=== PATIENT | male | born 1965 | race Caucasian/White ===

== ENCOUNTER 2021-11-14 19:33 | Inpatient (IN) | payer OTHER ==
[~2021-11-14] VITALS: Ht 180.3 cm; Wt 135.6 kg
[2021-11-14 23:21] LABS: BUN/CREATININE RATIO 40 (0-10)
[2021-11-14 23:22] LABS: HEMOGLOBIN 15.3 gm/dl (14.0-17.5); RED BLOOD COUNT 4.68 M/UL (4.20-5.50); WHITE BLOOD COUNT 9.7 K/UL (4.5-11.0)
[2021-11-14] MEDS ORDERED: NEURONTIN600 MG PO (23:31)
[2021-11-14] MEDS ORDERED: TENORMIN50 MG PO (23:32)
[2021-11-14] MEDS ORDERED: NORVASC5 MG PO (23:32)
[2021-11-14] MEDS ORDERED: ZYLOPRIM100 MG PO (23:32)
[2021-11-14] MEDS ORDERED: COLCHICINE0.6 MG PO (23:33)
[2021-11-14] MEDS ORDERED: TRICOR 145 MG145 MG PO (23:34)
[2021-11-14] MEDS ORDERED: MOBIC15 MG PO (23:36)
[2021-11-14] MEDS ORDERED: LISINOPRIL-HCT1 EAC2 PO (23:36)
[2021-11-14] MEDS ORDERED: ROBAXIN 750 MG750 MG PO (23:37)
[2021-11-14] MEDS ORDERED: PROTONIX40 MG PO (23:37)
[2021-11-14] MEDS ORDERED: KLOR-CON M2020 MEQ PO (23:37)
[2021-11-14] MEDS ORDERED: FLOMAX 0.4 MG0.4 MG PO (23:39)
[2021-11-14] MEDS ORDERED: NAPROXEN500 MG PO (23:41)
[2021-11-15 09:29] LABS: ADENOVIRUS F 40/41 Not Detected (Negative); ASTROVIRUS Not Detected (Negative); CAMPYLOBACTER Not Detected (Negative); CRYPTOSPORIDIUM Not Detected (Negative); E.COLI 0157 Not Detected (Negative); ENTAMOEBA HISTOLYTICA Not Detected (Negative); ENTEROAGGREGATIVE E.COLI (EAEC Not Detected (Negative); ENTEROTOXIGENIC E.COLI (ETEC) Not Detected (Negative); GIARDIA LAMBLIA Not Detected (Negative); NOROVIRUS GI/GII Not Detected (Negative); PLESIOMONAS SHIGELLOIDES Not Detected (Negative); SALMONELLA Not Detected (Negative); SAPOVIRUS Not Detected (Negative); SHIG/ENTEROINVAS.ECOLI (EIEC) Not Detected (Negative); SHIGA-LIK TOX.PRO.E.COLI (STEC Not Detected (Negative); VIBRIO Not Detected (Negative); VIBRIO CHOLERAE Not Detected (Negative); YERSINIA ENTEROCOLITICA Not Detected (Negative)
[2021-11-15] MEDS ORDERED: PROAIR HFA8.5 GM INH (09:29)
[2021-11-15] MEDS ORDERED: HYDROCODON-ACE1 EAC2 PO (09:30)
[2021-11-15] MEDS ORDERED: LACTULOSE10 GM/15 M PO (09:30)
[2021-11-15] MEDS ORDERED: LANTUS SOL100 UNIT/1 SC (09:32)
[2021-11-15 13:18] LABS: ENTEROPATHOGENIC E.COLI (EPEC) DETECTED (Negative); ROTOVIRUS A DETECTED (Negative)
[2021-11-15] MEDS ORDERED: FLONASE 0.05% N16 GM (23:35)
[2021-11-15] MEDS ORDERED: CRESTOR5 MG PO (23:39)
[2021-11-15] MEDS ORDERED: VITAMIN D21250 MCG PO (23:40)
[2021-11-16 02:10] LABS: HEMOGLOBIN 13.9 gm/dl (14.0-17.5); RED BLOOD COUNT 4.36 M/UL (4.20-5.50); WHITE BLOOD COUNT 7.9 K/UL (4.5-11.0)
[2021-11-16 02:52] LABS: BUN/CREATININE RATIO 13 (0-10)
== END 2021-11-16 10:47 | disposition home or self-care (01) | DRG 389 ==
LOC: M/S 19:33
PROVIDERS: Internal Medicine; ADMIT Internal Medicine
DX: K56.609 Unspecified intestinal obstruction, unspecified as to partial versus complete obstruction (principal); A08.0 Rotaviral enteritis; Z68.41 Body mass index [BMI] 40.0-44.9, adult; M10.9 Gout, unspecified; E55.9 Vitamin D deficiency, unspecified; I10 Essential (primary) hypertension; M62.838 Other muscle spasm; Z20.822 Contact with and (suspected) exposure to COVID-19; F17.210 Nicotine dependence, cigarettes, uncomplicated; K21.9 Gastro-esophageal reflux disease without esophagitis; E66.9 Obesity, unspecified; E78.5 Hyperlipidemia, unspecified; B96.20 Unspecified Escherichia coli [E. coli] as the cause of diseases classified elsewhere; N40.0 Benign prostatic hyperplasia without lower urinary tract symptoms; E11.40 Type 2 diabetes mellitus with diabetic neuropathy, unspecified; Z98.49 Cataract extraction status, unspecified eye; Z88.0 Allergy status to penicillin; Z88.5 Allergy status to narcotic agent; Z83.3 Family history of diabetes mellitus
CPT/HCPCS: 36415; 74019; 80048; 80053; 82962; 83735; 85027; 87177; 87209; 87449; 87507; J1650; U0002